=== PATIENT | female | born 1950 | race Caucasian/White ===

== ENCOUNTER 2023-08-08 07:13 | Day surgery (SDC) | payer MEDICARE, OTHER, SELFPAY ==
[2023-08-04 12:01] VITALS: BMI 32.9
--- NOTE | 2023-08-05 07:46 | MHC.SHP ---
Pre-Procedural Eval Section A Date of Service: 08/05/23 The patient is an INPATIENT: No Changes since office visit: No Cold of Flu in the past 2 weeks, No New Medical Problems, No Changes in Medication and No Patient answered all questions The History & Physical has been completed within 30 days and I have reviewed it.: Yes Section B Chief Complaint: Age-related nuclear cataract, left eye Allergies: Allergies Allergy/AdvReac Type Severity Reaction Status Date / Time Penicillins Allergy Severe Rash, Verified 08/04/23 11:57 swelling Sulfa (Sulfonamide Allergy Severe Rash Verified 08/04/23 11:57 Antibiotics) walnut Allergy Severe Hives Verified 08/04/23 11:57 chemo dilutant Allergy Severe Fever, rash Uncoded 08/04/23 11:57 Plan Diagnosis/Plan: Unchanged I have reviewed the history and physical and performed a pertinent physical examination on my patient. No changes have occurred unless specified. Time Spent With Patient Time: Total time managing care of this patient today ____ minutes.
[2023-08-08 07:31] VITALS: BP 131/60; PULSE 76; RESP 16; TEMP 36.4; O2SAT 95
[2023-08-08] MEDS: Tetracaine HCl/PF 0.5% Oph Sol 4 ML DROPS 1 DROP EYE-LEFT (07:49)
[2023-08-08] MEDS: Cyclopentolate 1 % Ophth Sol 2 ML DRPBTL 1 DROP EYE-LEFT ×3 (07:50→07:55)
[2023-08-08] MEDS: Tropicamide 1 % Ophth Sol 3 ML BTL 1 DROP EYE-LEFT ×3 (07:51→07:56)
[2023-08-08] MEDS: Ketorolac Tromethamine 0.5% Op 5 ML DROPS 1 DROP EYE-LEFT ×3 (07:51→07:57)
[2023-08-08] MEDS: Phenylephrine HCL 2.5% Oph SoL 2 ML BOTTLE 1 DROP EYE-LEFT ×3 (07:52→07:57)
[2023-08-08 08:11] LABS: Glucose, Whole Blood 144 mg/dL (60-115)
--- NOTE | 2023-08-08 08:14 | P.CONAN_ITS ---
[facility] Past Medical History Medical History (Updated 08/04/23 @ 12:01 by Rianna Trinidad, CHIKA) Cataract History of chemotherapy Slow to wake up after anesthesia Type 2 diabetes mellitus Lymphedema of upper extremity following lymphadenectomy Osteopenia Hx of breast cancer Hx of perforation of tympanic membrane Peripheral neuropathy due to chemotherapy Arthritis AML (acute myeloid leukemia) in remission Family History Family History (Updated 08/04/23 @ 11:56 by Rianna Trinidad, RN) Father Slow to wake up after anesthesia Family history of problems with anesthesia: No Surgical History Surgical History (Updated 08/04/23 @ 11:20 by Rianna Trinidad, CHIKA) Hx of right mastectomy History of Status post right breast lumpectomy Hx of bone marrow transplant S/P radiation therapy History of total bilateral knee replacement (TKR) History of Problems with Anesthesia: No Social History Social History (System 07/20/23 @ 13:12 by Idania Alcantara) Are you a primary transition of care specialist to a significant other at home: No Do you presently have visiting nurse or other home services: No Patient Tobacco Use Status: Never used Tobacco Use of substances other than those prescribed or required for medical reasons: No Have you been hit, kicked, punched, or otherwise hurt by someone within the past year? If so, by whom?: No Are you DNR?: No Advance Directives: No Advance Directives Information Provided: Yes Advance Directives on File: No Recently lost weight without trying: No Nutrition Risks: No Nutritional Risk Meds Allergies Allergy/AdvReac Type Severity Reaction Status Date / Time Penicillins Allergy Severe Rash, Verified 08/04/23 11:57 swelling Sulfa (Sulfonamide Allergy Severe Rash Verified 08/04/23 11:57 Antibiotics) walnut Allergy Severe Hives Verified 08/04/23 11:57 chemo dilutant Allergy Severe Fever, rash Uncoded 08/04/23 11:57 Active Medications: Current Medications Povidone Iodine (Povidone Iodine 5 % Ophth Soln 30 Ml Bottle) 1 appl EYE-LEFT PREOP PRN PRN Reason: Pre-Op Surgical Implant Prophy Home Medications Medication Instructions Recorded Confirmed Last Taken Type albuterol sulfate 90 mcg/actuation 2 puff inhalation Q4H PRN wheezing 08/04/23 Unknown History aerosol inhaler aspirin 81 mg chewable tablet 81 mg PO BEDTIME 08/04/23 08/04/23 Unknown History cholecalciferol (vitamin D3) 50 50 mcg PO BEDTIME 08/04/23 08/04/23 Unknown History mcg (2,000 unit) capsule (Vitamin D3) fluticasone propionate 50 spray intranasal 08/04/23 Unknown History mcg/actuation nasal spray,suspension gabapentin 100 mg capsule 200 mg PO BEDTIME 08/04/23 08/04/23 Unknown History lisinopril 2.5 mg tablet 2.5 mg PO BEDTIME 08/04/23 08/04/23 Unknown History metformin 500 mg tablet,extended 500 mg PO .DAILY@1800 08/04/23 08/04/23 Unknown History release 24 hr Exam Exam Date and Time: August 08, 2023 0814 Height,Weight and Vital Signs: Height 5 ft 2 in Weight 81.647 kg Last Vital Signs Temp 97.6 F 08/08/23 07:31 Pulse 76 08/08/23 07:31 Resp 16 08/08/23 07:31 BP 131/60 08/08/23 07:31 Pulse Ox 95 08/08/23 07:31 O2 Del Method Room Air 08/08/23 07:31 Pertinent Lab Results Pertinent Lab Results: Laboratory Tests 08/08/23 08:08 POC Glucose 144 H Airway Mallampati Class: II TM Dist: >3cm Neck ROM: Full Assessment and Plan Assessment Anesthesia Assessment: Anesthesia Plan Discussed and Chart Reviewed Final Anesthetic Review Family History of Problems with Anesthesia: No History of Problems with Anesthesia: No NPO: Yes ASA Class: III Final Preanesthetic Review: No Changes in Pt Med Stat, Meds/Allgs Chart Reviewed, Consent Obtained/Reviewed and Anes Risks/Benef Reviewed Patient Risk: Intermediate Procedure Risk: Low Anesthetic Plan Anesthetic Plan: MAC: Disposition: Standard PACU
--- NOTE | 2023-08-08 08:19 | HO.PNOPHT ---
Ophthalmology Procedure Procedure Date of Service: 08/08/23 Ophthalmology Viscoelastic: Healdaphney Duet Dual Pack Pro Ophthalmology Lenses: TECBRITTNEY [id number] (22) Procedure Notes: PREOPERATIVE DIAGNOSIS: Decreased visual acuity left eye secondary to cataract POSTOPERATIVE DIAGNOSIS: Same PROCEDURE: Left cataract extraction with intraocular lens insertion SURGEON: Thanh Chicas M.D. ANESTHESIA: Topical/MAC ESTIMATED BLOOD LOSS: None COMPLICATIONS: None After obtaining informed consent, the patient was brought to the operation room suite and placed in the supine position. After adequate sedation per anesthesia, topical drops of Tetracaine were given to the left eye. The eye was then prepped and draped in the usual sterile fashion. The operating room microscope was then positioned over the operative eye and a lid speculum placed. A paracentesis was created. Viscoelastic was then instilled into the anterior chamber. A three plane incision was then created temporally, utilizing a 2.85 mm keratome. Capsulotomy forceps were then utilized to create a circular tear capsulotomy. Hydrodissection and hydrodelineation were carried out until adequate mobilization of the nucleus occurred. Phacoemulsification was then utilized to remove the dense central nucleus followed by removal of the cortical material utilizing the automated aspiration irrigation unit. Viscoat elastic was instilled into the posterior capsular bag followed by placement of a posterior chamber intraocular lens without difficulty. The residual Viscoat elastic was then removed utilizing the automated IA machine. The wound was check and found to be watertight. The patient tolerated the procedure well and the lid speculum was removed. Intracameral injection of Vigamox 0.1 mL followed by a subtenon injection of Kenalog-40 0.2 mL were administered. The patient will be seen in the a.m.
[2023-08-08 08:44] VITALS: BP 141/80; PULSE 59; RESP 13; TEMP 36.2; O2SAT 97
== END 2023-08-08 08:59 | disposition home or self-care (01) ==
PROVIDERS: PCP Family Medicine; Visit Provider Ophthalmology
PROC: (CPT 66985; principal; 2023-08-08 08:50)
DX: H25.12 Age-related nuclear cataract, left eye (principal); H54.7 Unspecified visual loss; H43.399 Other vitreous opacities, unspecified eye; Z83.511 Family history of glaucoma; C92.01 Acute myeloblastic leukemia, in remission; Z85.3 Personal history of malignant neoplasm of breast; G62.0 Drug-induced polyneuropathy; T45.1X5A Adverse effect of antineoplastic and immunosuppressive drugs, initial encounter; I10 Essential (primary) hypertension; E11.9 Type 2 diabetes mellitus without complications; Z79.1 Long term (current) use of non-steroidal anti-inflammatories (NSAID); Z79.82 Long term (current) use of aspirin; Z79.899 Other long term (current) drug therapy; Z88.0 Allergy status to penicillin; Z88.2 Allergy status to sulfonamides; Z96.653 Presence of artificial knee joint, bilateral
CPT/HCPCS: 66984; 82947; J2250; J3010; J3301; V2632

== ENCOUNTER 2023-08-15 06:55 | Day surgery (SDC) | payer MEDICARE, OTHER, SELFPAY ==
[2023-08-04 12:04] VITALS: BMI 32.9
--- NOTE | 2023-08-12 07:43 | MHC.SHP ---
Pre-Procedural Eval Section A Date of Service: 08/12/23 The patient is an INPATIENT: No Changes since office visit: No Cold of Flu in the past 2 weeks, No New Medical Problems, No Changes in Medication and No Patient answered all questions The History & Physical has been completed within 30 days and I have reviewed it.: Yes Section B Chief Complaint: Age-related nuclear cataract, right eye Allergies: Allergies Allergy/AdvReac Type Severity Reaction Status Date / Time Penicillins Allergy Severe Rash, Verified 08/04/23 11:57 swelling Sulfa (Sulfonamide Allergy Severe Rash Verified 08/04/23 11:57 Antibiotics) walnut Allergy Severe Hives Verified 08/04/23 11:57 chemo dilutant Allergy Severe Fever, rash Uncoded 08/04/23 11:57 Plan Diagnosis/Plan: Unchanged I have reviewed the history and physical and performed a pertinent physical examination on my patient. No changes have occurred unless specified. Time Spent With Patient Time: Total time managing care of this patient today ____ minutes.
--- NOTE | 2023-08-12 09:32 | HO.ANESPROP2 ---
Documented by User: Radha Dela Cruz NP 08/12/23 09:34 HPI - Anesthesia Eval Consult details Narrative: 73yo F for Right Right Cataract Extraction IOL Insertion Medically cleared Left eye 08/08/23: Fent 50, Midaz 2 *No IV/BP on Right* hx breast cancer PMFSH Past Medical History Medical History Cataract History of chemotherapy Slow to wake up after anesthesia Type 2 diabetes mellitus Lymphedema of upper extremity following lymphadenectomy Osteopenia Hx of breast cancer Hx of perforation of tympanic membrane Peripheral neuropathy due to chemotherapy Arthritis AML (acute myeloid leukemia) in remission Family History Family History Father Slow to wake up after anesthesia Family history of problems with anesthesia: No Surgical History Surgical History Hx of right mastectomy History of Status post right breast lumpectomy Hx of bone marrow transplant S/P radiation therapy History of total bilateral knee replacement (TKR) History of Problems with Anesthesia: No Social History Social History Are you a primary patient care technician to a significant other at home: No Do you presently have visiting nurse or other home services: No Patient Tobacco Use Status: Never used Tobacco Use of substances other than those prescribed or required for medical reasons: No Have you been hit, kicked, punched, or otherwise hurt by someone within the past year? If so, by whom?: No Are you DNR?: No Advance Directives: No Advance Directives Information Provided: Yes Advance Directives on File: No Recently lost weight without trying: No Nutrition Risks: No Nutritional Risk Meds Allergies Allergy/AdvReac Type Severity Reaction Status Date / Time Penicillins Allergy Severe Rash, Verified 08/15/23 07:37 swelling Sulfa (Sulfonamide Allergy Severe Rash Verified 08/15/23 07:37 Antibiotics) walnut Allergy Severe Hives Verified 08/15/23 07:37 chemo dilutant Allergy Severe Fever, rash Uncoded 08/04/23 11:57 Home Medications Medication Instructions Recorded Confirmed Last Taken Type albuterol sulfate 90 mcg/actuation 2 puff inhalation Q4H PRN wheezing 08/04/23 Unknown History aerosol inhaler aspirin 81 mg chewable tablet 81 mg PO BEDTIME 08/04/23 08/04/23 Unknown History cholecalciferol (vitamin D3) 50 50 mcg PO BEDTIME 08/04/23 08/04/23 Unknown History mcg (2,000 unit) capsule (Vitamin D3) fluticasone propionate 50 spray intranasal 08/04/23 Unknown History mcg/actuation nasal spray,suspension gabapentin 100 mg capsule 200 mg PO BEDTIME 08/04/23 08/04/23 Unknown History lisinopril 2.5 mg tablet 2.5 mg PO BEDTIME 08/04/23 08/04/23 Unknown History metformin 500 mg tablet,extended 500 mg PO .DAILY@1800 08/04/23 08/04/23 Unknown History release 24 hr Exam Exam Date and Time: August 12, 2023 0932 Height,Weight and Vital Signs: Height 5 ft 2 in Weight 81.647 kg Assessment and Plan Assessment Anesthesia Assessment: Chart Reviewed Final Anesthetic Review Family History of Problems with Anesthesia: No History of Problems with Anesthesia: No Documented by User: Salud Vasquez MD 08/15/23 08:01 [facility] Past Medical History Medical History Cataract History of chemotherapy Slow to wake up after anesthesia Type 2 diabetes mellitus Lymphedema of upper extremity following lymphadenectomy Osteopenia Hx of breast cancer Hx of perforation of tympanic membrane Peripheral neuropathy due to chemotherapy Arthritis AML (acute myeloid leukemia) in remission Family History Family History Father Slow to wake up after anesthesia Surgical History Surgical History Hx of right mastectomy History of Status post right breast lumpectomy Hx of bone marrow transplant S/P radiation therapy History of total bilateral knee replacement (TKR) Social History Social History Are you a primary patient care technician to a significant other at home: No Do you presently have visiting nurse or other home services: No Patient Tobacco Use Status: Never used Tobacco Use of substances other than those prescribed or required for medical reasons: No Have you been hit, kicked, punched, or otherwise hurt by someone within the past year? If so, by whom?: No Are you DNR?: No Advance Directives: No Advance Directives Information Provided: Yes Advance Directives on File: No Recently lost weight without trying: No Nutrition Risks: No Nutritional Risk Meds Allergies Allergy/AdvReac Type Severity Reaction Status Date / Time Penicillins Allergy Severe Rash, Verified 08/15/23 07:37 swelling Sulfa (Sulfonamide Allergy Severe Rash Verified 08/15/23 07:37 Antibiotics) walnut Allergy Severe Hives Verified 08/15/23 07:37 chemo dilutant Allergy Severe Fever, rash Uncoded 08/04/23 11:57 Home Medications Medication Instructions Recorded Confirmed Last Taken Type albuterol sulfate 90 mcg/actuation 2 puff inhalation Q4H PRN wheezing 08/04/23 Unknown History aerosol inhaler aspirin 81 mg chewable tablet 81 mg PO BEDTIME 08/04/23 08/04/23 Unknown History cholecalciferol (vitamin D3) 50 50 mcg PO BEDTIME 08/04/23 08/04/23 Unknown History mcg (2,000 unit) capsule (Vitamin D3) fluticasone propionate 50 spray intranasal 08/04/23 Unknown History mcg/actuation nasal spray,suspension gabapentin 100 mg capsule 200 mg PO BEDTIME 08/04/23 08/04/23 Unknown History lisinopril 2.5 mg tablet 2.5 mg PO BEDTIME 08/04/23 08/04/23 Unknown History metformin 500 mg tablet,extended 500 mg PO .DAILY@1800 08/04/23 08/04/23 Unknown History release 24 hr Exam Airway Mallampati Class: II TM Dist: >3cm Neck ROM: Full Loose/Missing/Broken Teeth: No Heart: RRR Lungs: CTA Assessment and Plan Assessment Anesthesia Assessment: Anesthesia Plan Discussed Final Anesthetic Review NPO: Yes ASA Class: III Final Preanesthetic Review: Meds/Allgs Chart Reviewed, Consent Obtained/Reviewed and Anes Risks/Benef Reviewed Patient Risk: Intermediate Procedure Risk: Low Anesthetic Plan Anesthetic Plan: MAC: Disposition: Standard PACU
[2023-08-15 07:43] VITALS: BP 144/65; PULSE 75; RESP 18; TEMP 35.8; O2SAT 98
[2023-08-15] MEDS: Tetracaine HCl/PF 0.5% Oph Sol 4 ML DROPS 1 DROP EYE-RIGHT (07:49)
[2023-08-15] MEDS: Cyclopentolate 1 % Ophth Sol 2 ML DRPBTL 1 DROP EYE-RIGHT ×3 (07:51→08:01)
[2023-08-15] MEDS: Tropicamide 1 % Ophth Sol 3 ML BTL 1 DROP EYE-RIGHT ×3 (07:53→08:02)
[2023-08-15] MEDS: Lactated Ringers 500 ML 50 ML IV (07:53)
[2023-08-15] MEDS: Ketorolac Tromethamine 0.5% Op 5 ML DROPS 1 DROP EYE-RIGHT ×3 (07:54→08:03)
[2023-08-15 07:55] LABS: Glucose, Whole Blood 158 mg/dL (60-115)
[2023-08-15] MEDS: Phenylephrine HCL 2.5% Oph SoL 2 ML BOTTLE 1 DROP EYE-RIGHT ×3 (07:55→08:04)
--- NOTE | 2023-08-15 08:39 | HO.PNOPHT ---
Ophthalmology Procedure Procedure Date of Service: 08/15/23 Ophthalmology Viscoelastic: Healdaphney Duet Dual Pack Pro Ophthalmology Lenses: TECNIS [id number] (22.5) Procedure Notes: PREOPERATIVE DIAGNOSIS: Decreased visual acuity right eye secondary to cataract POSTOPERATIVE DIAGNOSIS: Same PROCEDURE: Right cataract extraction with intraocular lens insertion SURGEON: Thanh Chicas M.D. ANESTHESIA: Topical/MAC ESTIMATED BLOOD LOSS: None COMPLICATIONS: None After obtaining informed consent, the patient was brought to the operating room suite and placed in the supine position. After adequate sedation per anesthesia, topical drops of Tetracaine were given to the right eye. The eye was then prepped and draped in the usual sterile fashion. The operating room microscope was then positioned over the operative eye and a lid speculum placed. A paracentesis was created. Viscoelastic was then instilled into the anterior chamber. A three plane incision was then created temporally, utilizing a 2.85 mm keratome. Capsulotomy forceps were then utilized to create a circular tear capsulotomy. Hydrodissection and hydrodelineation were carried out until adequate mobilization of the nucleus occurred. Phacoemulsification was then utilized to remove the dense central nucleus followed by removal of the cortical material utilizing the automated aspiration irrigation unit. Viscoelastic was instilled into the posterior capsular bag followed by placement of a posterior chamber intraocular lens without difficulty. The residual Viscoelastic was then removed utilizing the automated IA machine. The wound was checked and found to be watertight. The patient tolerated the procedure well and the lid speculum was removed. Intracameral injection of Vigamox 0.1 mL followed by a subtenon injection of Kenalog-40 0.2 mL were administered. The patient will be seen in the a.m.
[2023-08-15 09:05] VITALS: BP 124/52; PULSE 63; RESP 14; TEMP 36.4; O2SAT 96
== END 2023-08-15 09:14 | disposition home or self-care (01) ==
PROVIDERS: PCP Family Medicine; Visit Provider Ophthalmology
PROC: (CPT 66985; principal; 2023-08-15 08:50)
DX: H25.11 Age-related nuclear cataract, right eye (principal); H54.7 Unspecified visual loss; Z83.511 Family history of glaucoma; H43.393 Other vitreous opacities, bilateral; I10 Essential (primary) hypertension; E11.9 Type 2 diabetes mellitus without complications; C95.90 Leukemia, unspecified not having achieved remission; Z85.3 Personal history of malignant neoplasm of breast; Z79.1 Long term (current) use of non-steroidal anti-inflammatories (NSAID); Z79.82 Long term (current) use of aspirin; Z79.84 Long term (current) use of oral hypoglycemic drugs; Z79.51 Long term (current) use of inhaled steroids; Z79.899 Other long term (current) drug therapy; Z96.653 Presence of artificial knee joint, bilateral; Z88.0 Allergy status to penicillin; Z88.2 Allergy status to sulfonamides
CPT/HCPCS: 66984; 82947; J2250; J2405; J3010; J3301; V2632